=== PATIENT | female | born 1995 | race Two or more races ===

== ENCOUNTER 2018-01-17 17:33 | Emergency (ER) | payer SELFPAY ==
[~2018-01-17] VITALS: Ht 157.5 cm; Wt 65.8 kg
[2018-01-17 17:35] VITALS: BP 130/81
== END 2018-01-17 18:03 | disposition home or self-care (01) ==
LOC: ER 17:35
DX: M25.532 Pain in left wrist (principal); F41.9 Anxiety disorder, unspecified; Z60.2 Problems related to living alone
CPT/HCPCS: A4606; Z7610